=== PATIENT | female | born 1960 | race Caucasian/White ===

== ENCOUNTER → 2020-05-04 | Outpatient (CLI) | payer BC | LOC: YCFC.O 12:03 | PROVIDERS: ATTEND Family Medicine | DX: I10 Essential (primary) hypertension (principal); Z13.220 Encounter for screening for lipoid disorders; Z13.29 Encounter for screening for other suspected endocrine disorder ==

== ENCOUNTER → 2020-05-20 | Outpatient (CLI) | payer BC | LOC: YCFC.O 10:08 | PROVIDERS: ATTEND Family Medicine | DX: Z51.81 Encounter for therapeutic drug level monitoring (principal) ==